=== PATIENT | male | born 1950 | race Caucasian/White ===

== ENCOUNTER 2021-04-09 09:36 | Outpatient (CLI) | payer MEDICARE | END 2021-04-09 09:37 | disposition home or self-care (01) | LOC: CTENTCT 09:36 | PROVIDERS: ATTEND Otolaryngology Plastic Surgery within the Head & Neck | DX: J33.9 Nasal polyp, unspecified (principal) | CPT/HCPCS: 70486 ==

== ENCOUNTER 2021-04-19 08:03 | Outpatient (CLI) | payer MEDICARE ==
[2021-04-19 11:25] LABS: Hemoglobin 14.1 g/dL (13.5-17.5); Mean Corpuscular HGB CONC 33.1 g/dL (32.0-36.0); Mean Corpuscular Hemoglobin 29.7 pg (27.0-33.0); Mean Corpuscular Volume 89.7 fl (81.2-95.1); Mean Platelet Volume 10.8 fl (7.4-10.4); Platelet Count 307 10x3/uL (150-450); Red Blood Cell (RBC) Count 4.75 10x6/uL (4.32-5.72); White Blood Cell (WBC) Count 7.8 10x3/uL (3.5-10.5)
[2021-04-19 11:38] LABS: Anion Gap 14 mmol/L (10-20); BUN (Urea Nitrogen) 15 mg/dL (8.4-25.7); Calc. Creatinine Clearance 0 mL/min (70-130); Calcium 8.6 mg/dL (7.8-10.44); Carbon Dioxide 22 mmol/L (23-31); Chloride 106 mmol/L (98-107); Glucose 94 mg/dL (80-115); Potassium 4.7 mmol/L (3.5-5.1); Sodium 137 mmol/L (136-145)
[2021-04-19 18:08] LABS: SARS-CoV-2 PCR by NAA Not Detected (NotDetected)
== END 2021-04-19 08:04 | disposition home or self-care (01) ==
LOC: LABBT 08:03
PROVIDERS: ATTEND Otolaryngology Plastic Surgery within the Head & Neck
DX: Z01.818 Encounter for other preprocedural examination (principal); Z20.822 Contact with and (suspected) exposure to COVID-19
CPT/HCPCS: 80048; 85027; 93005; U0003; U0005; 93010

== ENCOUNTER 2021-04-24 09:11 | Day surgery (SDC) | payer MEDICARE ==
[2021-04-23 10:59] VITALS: BMI 30.1
[2021-04-24] MEDS ORDERED: Oxymetazoline HCl 0.05% (30 ML BOT) ONE (09:50)
[2021-04-24] MEDS ORDERED: Lidocaine 1% w/Epinephrine 1:100K 20 ML VIAL ONE (10:40)
[2021-04-24] MEDS ORDERED: AFRIN NASAL MIST 15 ML BOT ONE (10:40)
[2021-04-24] MEDS ORDERED: Midazolam HCl 2 mg/2 ml Vial ONE (10:44)
[2021-04-24] MEDS ORDERED: Fentanyl 100 MCG/2 ML VIAL ONE ×3 (10:44→13:20)
[2021-04-24] MEDS ORDERED: Ondansetron PF 4 MG/2 ML Vial ONE ×2 (11:11)
[2021-04-24] MEDS ORDERED: Labetalol HCl 100 MG/20 ML VIAL ONE (11:11)
[2021-04-24] MEDS ORDERED: Glycopyrrolate 0.2 MG/ML 5 ML SYRINGE ONE (11:11)
[2021-04-24] MEDS ORDERED: Dexamethasone 20 MG/5 ML VIAL ONE (11:11)
[2021-04-24] MEDS ORDERED: PROPOFOL 200 MG/20 ML VIAL ONE (11:11)
[2021-04-24] MEDS ORDERED: Rocuronium Bromide 10 MG/ML (10ML VIAL) ONE (11:11)
[2021-04-24] MEDS ORDERED: Lidocaine 1% PF 5 ML VIAL ONE (11:11)
[2021-04-24] MEDS ORDERED: HYDROcodone/Acetaminophen 5/325 mg Tablet ONE (14:25)
[2021-04-24] MEDS ORDERED: Ibuprofen 100 MG/5 ML UDCUP ONE (15:20)
== END 2021-04-24 15:38 | disposition home or self-care (01) ==
LOC: SDC 09:11
PROVIDERS: ATTEND Otolaryngology Plastic Surgery within the Head & Neck
PROC: 09TL7ZZ Resection of Nasal Turbinate, Via Natural or Artificial Opening (ICD-10-PCS; principal; 2021-04-24)
PROC: 8E09XBZ Computer Assisted Procedure of Head and Neck Region (ICD-10-PCS; 2021-04-24)
PROC: 099T8ZZ Drainage of Left Frontal Sinus, Via Natural or Artificial Opening Endoscopic (ICD-10-PCS; 2021-04-24)
PROC: 099W8ZZ Drainage of Right Sphenoid Sinus, Via Natural or Artificial Opening Endoscopic (ICD-10-PCS; 2021-04-24)
PROC: 099X8ZZ Drainage of Left Sphenoid Sinus, Via Natural or Artificial Opening Endoscopic (ICD-10-PCS; 2021-04-24)
PROC: 099S8ZZ Drainage of Right Frontal Sinus, Via Natural or Artificial Opening Endoscopic (ICD-10-PCS; 2021-04-24)
PROC: 09BR8ZZ Excision of Left Maxillary Sinus, Via Natural or Artificial Opening Endoscopic (ICD-10-PCS; 2021-04-24)
PROC: 09BQ8ZZ Excision of Right Maxillary Sinus, Via Natural or Artificial Opening Endoscopic (ICD-10-PCS; 2021-04-24)
PROC: 09TV8ZZ Resection of Left Ethmoid Sinus, Via Natural or Artificial Opening Endoscopic (ICD-10-PCS; 2021-04-24)
PROC: 09TU8ZZ Resection of Right Ethmoid Sinus, Via Natural or Artificial Opening Endoscopic (ICD-10-PCS; 2021-04-24)
DX: J32.9 Chronic sinusitis, unspecified (principal); J33.8 Other polyp of sinus; J34.3 Hypertrophy of nasal turbinates; J34.89 Other specified disorders of nose and nasal sinuses; G50.1 Atypical facial pain; H90.5 Unspecified sensorineural hearing loss; E78.5 Hyperlipidemia, unspecified; J45.909 Unspecified asthma, uncomplicated; Z87.891 Personal history of nicotine dependence; Z79.82 Long term (current) use of aspirin; Z79.899 Other long term (current) drug therapy; Z88.5 Allergy status to narcotic agent
CPT/HCPCS: 88304; J1100; J2250; J2405; J2704; J3010

== ENCOUNTER 2021-08-20 05:43 | Day surgery (SDC) | payer MEDICARE ==
[2021-08-15 10:46] VITALS: BMI 29.2
[2021-08-20] MEDS ORDERED: Neomycin-Polymyxin 1 ML AMP ONE (06:18)
[2021-08-20] MEDS ORDERED: Bupivacaine PF 0.5% 30 ML VIAL ONE (06:18)
[2021-08-20] MEDS ORDERED: Bacitracin Zinc Ointment 30 gm TUBE ONE (06:18)
[2021-08-20] MEDS ORDERED: Betamet Acet/Betamet Na Ph 30 MG/5 ML VIAL ONE (06:18)
[2021-08-20] MEDS ORDERED: Fentanyl 100 MCG/2 ML VIAL ONE (06:59)
[2021-08-20] MEDS ORDERED: ceFAZolin 2 GM/Dextrose 50 ML IVPB ONE (07:04)
[2021-08-20] MEDS ORDERED: PROPOFOL 200 MG/20 ML VIAL ONE (07:23)
[2021-08-20] MEDS ORDERED: Ondansetron PF 4 MG/2 ML Vial ONE (07:23)
[2021-08-20] MEDS ORDERED: Lidocaine 1% PF 5 ML VIAL ONE (07:23)
[2021-08-20] MEDS ORDERED: Dexamethasone 20 MG/5 ML VIAL ONE (07:23)
[2021-08-20] MEDS ORDERED: Ketorolac Tromethamine 30 MG/ML VIAL ONE ×2 (07:23→08:27)
== END 2021-08-20 10:05 | disposition home or self-care (01) ==
LOC: SDC 05:43
PROVIDERS: ATTEND Orthopaedic Surgery Hand Surgery
PROC: 0LN70ZZ Release Right Hand Tendon, Open Approach (ICD-10-PCS; principal; 2021-08-20)
PROC: 0LN70ZZ Release Right Hand Tendon, Open Approach (ICD-10-PCS; 2021-08-20)
DX: M65.312 Trigger thumb, left thumb (principal); M65.322 Trigger finger, left index finger; E78.5 Hyperlipidemia, unspecified; J45.909 Unspecified asthma, uncomplicated; Z87.891 Personal history of nicotine dependence; Z79.82 Long term (current) use of aspirin; Z79.899 Other long term (current) drug therapy; Z88.5 Allergy status to narcotic agent; M65.841 Other synovitis and tenosynovitis, right hand
CPT/HCPCS: J0690; J0702; J1100; J1885; J2405; J2704; J3010; S0020